=== PATIENT | female | born 1975 | race Caucasian/White ===

== ENCOUNTER 2020-06-08 09:54 | Outpatient (REF) | payer OTHER, SELFPAY ==
[2020-06-08 10:44] LABS: COVID-19 Test Negative (Negative)
== END 2020-06-08 09:55 | disposition home or self-care (01) ==
LOC: HO.EMPCOV 09:54
PROVIDERS: Visit Provider Internal Medicine
DX: Z20.828 Contact with and (suspected) exposure to other viral communicable diseases (principal)
CPT/HCPCS: 87635; C9803

== ENCOUNTER 2020-10-21 08:45 | Outpatient (REF) | payer OTHER, SELFPAY ==
[2020-10-21 09:09] LABS: COVID-19 Test Negative (Negative); IDNOW Serial# 55D5AD1C
== END 2020-10-21 08:46 | disposition home or self-care (01) ==
LOC: HO.EMPCOV 08:45
PROVIDERS: Visit Provider Internal Medicine
DX: Z20.822 Contact with and (suspected) exposure to COVID-19 (principal)
CPT/HCPCS: 36415; 87635; C9803

== ENCOUNTER → 2021-01-10 15:25 | Outpatient (BNVA) | payer OTHER, SELFPAY | PROVIDERS: Visit Provider Surgery | DX: K64.5 Perianal venous thrombosis (principal) | CPT/HCPCS: 99212 ==

== ENCOUNTER 2021-02-03 23:00 | Emergency (ER) | payer OTHER, SELFPAY ==
--- NOTE | ~2021-02-03 | XR_ITS ---
EXAMINATION: PORTABLE CHEST 1 VIEW CLINICAL INFORMATION: cough/fever - Covid+ . COMPARISON: 01/24/2015. TECHNIQUE: Portable frontal view of the chest was obtained. FINDINGS: Lungs are well expanded with subtle patchy bilateral airspace changes and now present suggesting underlying atypical or viral infectious etiology. No significant effusion, edema, or pneumothorax. Cardiac and mediastinal silhouettes within normal limits for size. No acute bony abnormality. XR/XR chest 1V IMPRESSION: Subtle patchy bilateral airspace changes which could reflect underlying viral or atypical infectious etiology.
--- NOTE | ~2021-02-03 | CT_ITS ---
EXAMINATION: CT ANGIOGRAM OF THE CHEST WITH AND WITHOUT CONTRAST (CT PULMONARY ANGIOGRAM FOR PE) CLINICAL INFORMATION: Reason for Exam tachycardia COVID positive r/o PE COMPARISON: 08/12/2014 TECHNIQUE: Prior to contrast administration, noncontrast localization images were obtained. Subsequently, multidetector volumetric imaging was performed from the thoracic inlet to below the diaphragms following the administration of 80 mL Omnipaque 350 intravenous contrast. No contrast reaction reported Sagittal, coronal, and MIP oblique sagittal reformatted images were obtained on the CT workstation, uploaded to PACS, and reviewed. This CT examination was performed using dose optimization techniques as appropriate, variously including the following: *Automated exposure control *Adjustment of mA and/or kV according to patient size (this includes techniques or standardized protocols for targeted exams where dose is matched to indication/reason for exam; i.e. extremities or head) *Use of iterative reconstruction technique Total exam dose-length product 234 mGy-cm FINDINGS: QUALITY OF STUDY/CONTRAST BOLUS: Satisfactory. PULMONARY ARTERIES: No central or segmental pulmonary emboli. THORACIC AORTA: No aneurysm or dissection. LUNG: There are patchy peripheral consolidative opacities predominating within the lower lobes bilaterally, and to a much lesser extent within the left upper and right upper lobe. PLEURA: No pleural effusion or pneumothorax. MEDIASTINUM: Normal heart size. No pericardial effusion. No hilar or mediastinal lymphadenopathy. No evidence of septal bowing or right heart strain. CHEST WALL/AXILLA: No axillary or internal mammary lymphadenopathy. OSSEOUS STRUCTURES: No acute or suspicious osseous abnormality. UPPER ABDOMEN: Unremarkable. No reflux of contrast into the hepatic veins to suggest elevated right heart pressures. CT/CT angio chest PE protocol IMPRESSION: * No pulmonary embolism. * No aortic aneurysm or dissection. * There are patchy peripherally predominant lower lobe airspace opacities compatible with an atypical pneumonitis. VTE: negative
[2021-02-03 23:20] VITALS: BP 147/63; PULSE 114; RESP 18; TEMP 37; O2SAT 96; BMI 25.2
--- NOTE | 2021-02-04 00:08 | ED.FEVER ---
HPI - Fever General Chief Complaint: Fever Stated Complaint: covid + Time Seen by Provider: 02/03/21 23:58 Source: patient Mode of arrival: ambulatory Limitations: no limitations History of Present Illness HPI Narrative: 45 yo female hx of RA but not on any medications, did not get vaccine, went to [place] recently on Saturday noted fevers, cough, not feeling well tested positive for COVID on Saturday today is day 8 of symptoms, she mostly c/o persistent fevers, no CP/SOB. Took tylenol but no sig relief and the patient was told by people not to take motrin elicited complaint: fever Pertinent past history: other (COVID positive) Onset (ago): day(s) (8) Measured temperature: 100.4 F Context: sick contacts and other(s) with similar symptoms Exacerbating factors: nothing Relieving factors: nothing Associated symptoms: cough and diarrhea Treatments prior to arrival fever: acetaminophen Related Data Home Medications Medication Instructions Recorded Confirmed No Known Home Meds 01/10/21 01/11/21 Allergies Allergy/AdvReac Type Severity Reaction Status Date / Time No Known Allergies Allergy Verified 02/03/21 23:20 [No Known Allergies*] Review of Systems Review of Systems: Constitutional : No Weight loss, pos Fever, pos Chills, pos Fatigue, No Malaise ENT/Mouth : No sore throat, No Rhinorrhea Eyes: No Eye Pain, No Swelling, No Redness Cardiovascular : No Chest Pain, No SOB, No Dyspnea on Exertion, No Orthopnea, No Edema, No Palpitations Respiratory : pos Cough, No Sputum, No Wheezing Gastrointestinal : No Nausea, No Vomiting, pos Diarrhea, No Constipation, No abdominal Pain, No Hematochezia, No Melena Genitourinary : No Dysuria, No Urinary Frequency, No Hematuria, Musculoskeletal : No joint pain, No Myalgias, No Joint Swelling Skin : No Skin Lesions, No rash Neuro : No Weakness, No Numbness, No Dizziness, No Headache Psych : No Anxiety/Panic, No Depression Heme/Lymph: No Bruising, No Bleeding,No Lymphadenopathy Endocrine : No Polyuria, No Polydipsia All other systems reviewed and are negative [facility] Past Medical History Medical History Rheumatoid arthritis Thrombosed external hemorrhoid Surgical History History of hemorrhoidectomy (04/27/14) History of laparoscopic cholecystectomy (06/14/14) Family History Family History Father History of liver cancer Maternal Aunt History of leukemia Social History Social History Alcohol intake: never Patient Tobacco Use Status: Never used Tobacco Advance Directives: No Patient : Yes Physical Exam Vital Signs: Vital Signs: Last Vital Signs Temp 98.6 F 02/03/21 23:20 Pulse 120 H 02/04/21 00:46 Resp 20 02/04/21 00:46 BP 127/71 02/04/21 00:46 Pulse Ox 98 02/04/21 00:46 Body Mass Index 25.2 Appearance: Alert. Oriented X3. No acute distress. Anxious Eyes: Pupils equal, round and reactive to light. ENT: Pharynx normal. Neck: Normal inspection. Neck supple. CVS: tachycardic heart rate and rhythm. Pulses normal. Respiratory: No respiratory distress. Breath sounds normal. Abdomen: Soft and nontender. Skin: Skin warm and dry. Normal skin color. Normal skin turgor. Extremities: No lower extremity edema. No calf ttp Neuro: Oriented X 3. No motor deficit. No sensory deficit. ambulation trial in room maintained sats > 97% Course Course Course Narrative: qtc prolonged, IV magnesium ordered persitently tachycardic - CTA for PE orderd MDM - Fever MDM Narrative Medical decision making narrative: 45 yo female hx of RA but not on any medications, did not get vaccine, went to [place] recently on Saturday noted fevers, cough, not feeling well tested positive for COVID on Saturday today is day 8 of symptoms, she mostly c/o persistent fevers, no CP/SOB. Took tylenol but no sig relief and the patient was told by people not to take motrin. At this time no CP/SOB to suggest PE, no hypoxia. CXR shows subtle infiltrates - will obtain risk labs, I do not suspect superimposed bacterial infection or PE Lab Data Result diagrams: 02/04/21 00:59 02/04/21 00:59 Labs: Lab Results 02/04/21 02/04/21 Range/Units 00:59 00:59 WBC 3.9 L (4.8-10.8) X10*3/uL RBC 5.05 (4.20-5.50) X10*6/uL Hgb 13.1 (12.0-16.0) g/dl Hct 39.8 (37-47) % MCV 78.8 L (80-98) fL MCH 25.9 L (27.0-33.0) pg MCHC 32.9 (31.0-35.0) g/dl RDW 13.1 (11.0-16.0) % Plt Count 103 L (160-400) X10*3/uL MPV 10.6 (9.4-12.3) fL Immature Gran % (Auto) 0.3 (0.0-0.4) % Neut % (Auto) 78.1 H (45-73) % Lymph % (Auto) 18.3 L (20-40) % [place] % (Auto) 3.3 (2-11) % Eos % (Auto) 0.0 (0-4) % Baso % (Auto) 0.0 (0-2) % Lymph # (Auto) 0.7 L (1.2-4.9) X10*3/uL [place] # (Auto) 0.1 (0.1-1.2) X10*3/uL Eos # (Auto) 0.0 (0.0-0.4) X10*3/uL Baso # (Auto) 0.0 (0.0-0.2) X10*3/uL Abs Immat Gran (auto) 0.01 (0.00-0.03) X10*3/uL Absolute Neuts (auto) 3.1 (2.0-8.3) X10*3/uL Absolute Nucleated RBC 0.000 (0.0-0.012) X10*3/uL Nucleated RBC % (auto) 0.0 (0.0-0.2) /100WBC D-Dimer 283 NG/ML ECG Data ECG #1: Attestation: I personally reviewed and interpreted this ECG as follows: ECG interpretation time: 00:51 Interpretation: Rate: 113 Rhythm: sinus tachycardia [place]: normal Normal P waves. Normal ROSANNA. Normal QRS complex. ST T wave : nonspecific, no ILEANA qTC: prolonged prior studies: no acute ischemia The study has been interpreted contemporaneously by me. . Discharge Plan Discharge Clinical Impression: COVID-19, Prolonged QT interval, Tachycardia Prescriptions: No Action No Known Home Meds RF: 0
--- NOTE | 2021-02-04 00:28 | ECG_ITS ---
Test Reason : COVID + Blood Pressure : / mmHG Vent. Rate : 113 BPM Atrial Rate : 113 BPM P-R Int : 096 ms QRS Dur : 078 ms QT Int : 470 ms P-R-T Axes : 000 022 042 degrees QTc Int : 644 ms Sinus tachycardia with short SD Nonspecific ST-T changes Prolonged QT Abnormal ECG When compared with ECG of 12-AUG-2014 13:53, SD interval has decreased Referred By: Hailee Ellison Electronically Signed By:Franklin Zee
[2021-02-04 00:46] VITALS: BP 127/71; PULSE 120; RESP 20; O2SAT 98
[2021-02-04 00:47] VITALS: TEMP 38
[2021-02-04 01:05] LABS: Hemoglobin 13.1 g/dl (12.0-16.0); Imm Gran Abs Auto 0.01 X10*3/uL (0.00-0.03); Monocytes Absolute Auto 0.1 X10*3/uL (0.1-1.2); PLT CLUMP 1; Red Cell Distribution Width 13.1 % (11.0-16.0); SCAN SMEAR FLAG 1
[2021-02-04 01:07] LABS: Hematocrit 39.8 % (37-47); Imm Gran Pct Auto 0.3 % (0.0-0.4); Lymphocytes Absolute Auto 0.7 X10*3/uL (1.2-4.9); Lymphocytes Percent Auto 18.3 % (20-40); Mean Corpuscular HGB Conc 32.9 g/dl (31.0-35.0); Mean Corpuscular Hemoglobin 25.9 pg (27.0-33.0); Mean Corpuscular Volume 78.8 fL (80-98); Mean Platelet Volume 10.6 fL (9.4-12.3); Monocytes Percent Auto 3.3 % (2-11); Neutrophils Absolute Auto 3.1 X10*3/uL (2.0-8.3); Neutrophils Percent Auto 78.1 % (45-73); Red Blood Count 5.05 X10*6/uL (4.20-5.50); White Blood Count 3.9 X10*3/uL (4.8-10.8)
[2021-02-04 01:08] LABS: MANUAL DIFF FLAG NO; Platelet Count 103 X10*3/uL (160-400)
[2021-02-04 01:13] LABS: D Dimer 283 NG/ML
[2021-02-04 01:28] LABS: Lactic Acid 0.7 mmol/L (0.5-2.0)
[2021-02-04 01:32] LABS: C Reactive Protein 2.81 mg/dL (< or = 0.50)
[2021-02-04 01:39] LABS: Alanine Aminotransferase 101 U/L (0-31); Albumin Level 4.1 g/dL (3.5-5.0); Alkaline Phosphatase 114 U/L (39-117); Anion Gap 15 (12-20); Aspartate Amino Transferase 81 U/L (5-31); Bilirubin Direct < 0.2 mg/dL (0.0-0.5); Bilirubin Total 0.2 mg/dL (0.0-1.0); Blood Urea Nitrogen 3 mg/dL (9-16); Calcium 8.8 mg/dL (8.4-10.2); Carbon Dioxide 24 mmol/L (22-29); Chloride 105 mmol/L (96-108); Creatinine Clr Calc Pharmacy 100.8; Estimated Glomerular Filt Rate > 60; Glucose Random 129 mg/dL (60-115); Lactate Dehydrogenase 304 U/L (122-220); Magnesium 1.7 mg/dL (1.6-2.6); Potassium 3.2 mmol/L (3.3-5.1); Sodium 141 mmol/L (135-145); Total Protein 7.1 g/dL (6.5-8.0)
[2021-02-04 01:51] LABS: Ferritin 106 ng/mL (10-250)
[2021-02-04] MEDS: 0.9 % Sodium Chloride 1,000 ML 999 ML IVCONT (01:55)
[2021-02-04] MEDS: Potassium Chloride ER 20 MEQ TAB.ER.PRT 40 MEQ PO (02:02)
[2021-02-04] MEDS: Ibuprofen 600 MG TABLET PO (02:02)
[2021-02-04] MEDS: Magnesium Sulfate/H2O 2 GM/50 ML PIGGYBACK IV (02:02)
[2021-02-04 02:29] LABS: Troponin-I High Sensitivity 7.4 ng/L (<3.5-17.0)
[2021-02-04] MEDS: iohexoL 350 MG/ML 100 ML INFUS..BTL 65 ML IV (02:53)
--- NOTE | 2021-02-04 03:58 | ECG_ITS ---
Test Reason : PROLONGED QT Blood Pressure : / mmHG Vent. Rate : 132 BPM Atrial Rate : 132 BPM P-R Int : 126 ms QRS Dur : 072 ms QT Int : 302 ms P-R-T Axes : 066 027 -05 degrees QTc Int : 447 ms Sinus tachycardia Nonspecific ST abnormality Abnormal ECG When compared with ECG of 04-FEB-2021 00:45, [place] interval has increased Referred By: Hailee Ellison Electronically Signed By:Franklin Zee
[2021-02-04 04:05] VITALS: BP 129/63; PULSE 129; RESP 18; O2SAT 96
== END 2021-02-04 04:51 | disposition home or self-care (01) ==
PROVIDERS: Emergency Medicine; Emergency Provider Emergency Medicine; PCP Internal Medicine
DX: U07.1 COVID-19 (principal); R94.31 Abnormal electrocardiogram [ECG] [EKG]; R00.0 Tachycardia, unspecified; R91.8 Other nonspecific abnormal finding of lung field
CPT/HCPCS: 36415; 71045; 71275; 80048; 80076; 82550; 82728; 83605; 83615; 83735; 84484; 85025; 85379; 86140; 87040; 93005; 96361; 96365; 99284; J3475; Q9967

== ENCOUNTER 2021-02-08 13:31 | Outpatient (REF) | payer OTHER, SELFPAY ==
--- NOTE | ~2021-02-08 | XR_ITS ---
EXAMINATION: XR CHEST CLINICAL INFORMATION: U07.1 - COVID-19 COMPARISON: Chest radiographs 02/03/2021, 01/24/2015; CTA chest 02/04/2021 TECHNIQUE: 2 views of the chest were obtained. FINDINGS: There are scattered subtle groundglass opacities in the lower zones slightly increased since prior exam 02/03/2021. No confluent lobar segmental airspace consolidation or effusion. The heart is normal in size. The vascularity is normal. No pneumothorax or pneumomediastinum. XR/XR chest 2V IMPRESSION: Groundglass opacities lower zones slightly increased since prior exam 02/03/2021.
== END 2021-02-08 13:32 | disposition home or self-care (01) ==
LOC: HO.XRAY 13:31
PROVIDERS: Visit Provider Internal Medicine
DX: U07.1 COVID-19 (principal)
CPT/HCPCS: 71046

== ENCOUNTER 2021-02-10 16:32 | Outpatient (REF) | payer OTHER, SELFPAY ==
--- NOTE | ~2021-02-10 | CT_ITS ---
EXAMINATION: CT CHEST WITHOUT CONTRAST CLINICAL INFORMATION: Abnormal findings on diagnostic imaging. COMPARISON: Radiograph 02/08/2021. CT 02/04/2021. TECHNIQUE: Multidetector volumetric CT imaging of the chest was done. Axial MIP volume rendering provided. Sagittal and coronal reformatted images were obtained. This CT examination was performed using dose optimization techniques as appropriate, variously including the following: *Automated exposure control *Adjustment of mA and/or kV according to patient size (this includes techniques or standardized protocols for targeted exams where dose is matched to indication/reason for exam; i.e. extremities or head) *Use of iterative reconstruction technique DLP: 193 mGy-cm FINDINGS: SAMPLE WEAVER: Right upper quadrant surgical clips. LUNGS: The central airways are patent. Multifocal consolidative and groundglass opacities are present. There is a predominantly posterior and peripheral distribution. When compared to the prior CT, the lower lobe opacities are fairly similar. The left upper lobe opacities are mildly increased. No pneumothorax. MEDIASTINUM: Normal heart size. No pericardial effusion. No mediastinal lymphadenopathy. PLEURA: There is no pleural effusion. No pleural mass or thickening. AXILLA: No lymphadenopathy. UPPER ABDOMEN: Cholecystectomy. OSSEOUS STRUCTURES: No acute or suspicious osseous abnormality. CT/CT chest wo con IMPRESSION: Multifocal bilateral airspace opacities which are similar to the prior CT in the lower lobes and mildly increased in the left upper lobe. Commonly reported imaging features of (COVID-19 or viral) pneumonia are present. Other processes such as influenza pneumonia and organizing pneumonia, as can be seen with drug toxicity and connective tissue disease, can cause a similar imaging pattern.
== END 2021-02-10 16:33 | disposition home or self-care (01) ==
LOC: HO.CT 16:32
PROVIDERS: PCP Internal Medicine; Visit Provider Internal Medicine
DX: R93.89 Abnormal findings on diagnostic imaging of other specified body structures (principal); R06.9 Unspecified abnormalities of breathing; Z90.49 Acquired absence of other specified parts of digestive tract
CPT/HCPCS: 71250

== ENCOUNTER → 2021-02-20 13:20 | Outpatient (REF) | payer OTHER, SELFPAY ==
--- NOTE | 2021-02-20 14:58 | HM_ITS ---
Patient monitored for total period of 2 days and 17 hours. Baseline rhythm is normal sinus rhythm with average heart rate of 107 beats per minute with minimum heart rate of 77 beats per minute. No long pauses or Benson arrhythmias noted. Frequent sinus tachycardia noted. Very rare ectopics, isolated PACs and PVCs noted. No prolonged tachyarrhythmias noted. Patient did not have any symptoms. MTDD
== END ==
LOC: HO.CARD 13:20
PROVIDERS: PCP Internal Medicine; Referring Provider Internal Medicine; Visit Provider Internal Medicine
DX: R00.2 Palpitations (principal); R00.0 Tachycardia, unspecified
CPT/HCPCS: 93225; 93242

== ENCOUNTER → 2021-02-20 | Outpatient (REF) | payer OTHER, SELFPAY | LOC: HO.CARD | PROVIDERS: Visit Provider Internal Medicine | DX: R00.0 Tachycardia, unspecified (principal) | CPT/HCPCS: 93005 ==

== ENCOUNTER 2021-02-22 05:19 | Emergency (ER) | payer OTHER, SELFPAY ==
[2021-02-22 05:25] VITALS: BP 157/74; PULSE 135; RESP 18; O2SAT 97; BMI 23.8
--- NOTE | 2021-02-22 05:43 | ED.GENADULT ---
HPI - General Adult General Chief complaint: General Medical Stated complaint: med reaction Time Seen by Provider: 02/22/21 05:32 Source: patient Mode of arrival: ambulatory Limitations: no limitations History of Present Illness HPI narrative: Patient comes emergency room complaining of palpitations. Patient states that she is being treated for anxiety, also has a Holter monitor for tachycardia. Patient states that she has been wearing a Holter monitor and is being followed by Dr. Wallace. Patient states all her symptoms started after she had COVID. Also, patient states that couple of days ago she was started on a new medication, escitalopram. Patient is concerned that the palpitations that is feeling today may be due to a side effect from the citalopram versus anxiety versus sinus tachycardia. Patient denies shortness of breath, no chest pain. Related Data Home Medications Medication Instructions Recorded Confirmed omeprazole 20 mg capsule,delayed 20 mg PO DAILY 02/20/21 02/20/21 release Previous Rx's Medication Instructions Recorded nystatin 100,000 unit/mL oral 1 ml PO BID 7 Days #14 ml 02/20/21 suspension escitalopram oxalate 10 mg tablet 10 mg PO BEDTIME 30 Days #30 tab 02/21/21 Allergies Allergy/AdvReac Type Severity Reaction Status Date / Time No Known Allergies Allergy Verified 02/20/21 13:55 [No Known Allergies*] Review of Systems Review of Systems: Constitutional : No Weight loss, No Fever, No Chills, No Night Sweats, No Fatigue, No Malaise ENT/Mouth : No Hearing loss, No Ear Pain, No Nasal Congestion, No Sinus Pain, No Hoarseness, No sore throat, No Rhinorrhea, No Swallowing Difficulty Eyes: No Eye Pain, No Swelling, No Redness, No Foreign Body, No Discharge, No Vision Changes Cardiovascular : No Chest Pain, No SOB, No Dyspnea on Exertion, No Orthopnea, No Edema, complaining of palpitations and rapid heart rate Respiratory : No Cough, No Sputum, No Wheezing, No Smoke Exposure, No Dyspnea Gastrointestinal : No Nausea, No Vomiting, No Diarrhea, No Constipation, No abdominal Pain, No Hematochezia, No Melena Genitourinary : no irregular bleeding, No Dysuria, No Urinary Frequency, No Hematuria, No Urinary Incontinence, No Urgency, No Flank Pain, No Urinary Flow Changes, No Hesitancy Musculoskeletal : No joint pain, No Myalgias, No Joint Swelling Skin : No Skin Lesions, No rash Neuro : No Weakness, No Numbness, No Paresthesias, No Loss of Consciousness, No Dizziness, No Headache Psych : Complaining of anxiety, No Depression, No SI/HI/AH/VH, No Social Issues, Heme/Lymph: No Bruising, No Bleeding,No Lymphadenopathy Endocrine : No Polyuria, No Polydipsia, No Temperature Intolerance [facility] Past Medical History Medical History Abnormal chest x-ray COVID-19 (~12/2020) Prolonged [place] interval Rash Rheumatoid arthritis Thrombosed external hemorrhoid Surgical History (Updated 02/20/21 @ 14:11 by Yessica Michel PA-C) History of hemorrhoidectomy (2013) History of laparoscopic cholecystectomy (2013) Family History Family History Father History of liver cancer Maternal Aunt History of leukemia Social History Social History Housing: House Alcohol intake: never Patient Tobacco Use Status: Never used Tobacco Advance Directives: No Advance Directives Information Provided: No Patient : No service: No Current occupational status: employed Current occupational exposures/hazards: No Physical Exam Vital Signs: Vital Signs: Last Vital Signs Pulse 135 H 02/22/21 05:25 Resp 18 02/22/21 05:25 BP 157/74 H 02/22/21 05:25 Pulse Ox 97 02/22/21 05:25 Body Mass Index 23.8 Appearance: Alert. Oriented X3. No acute distress. A bit anxious Eyes: Pupils equal, round and reactive to light. ENT: Pharynx normal. Neck: Normal inspection. Neck supple. No lymph nodes noted. No crepitus CVS: Tachycardic, Pulses normal. Normal S1 and S2 Respiratory: No respiratory distress. Breath sounds normal. No Wheezing. No rales Abdomen: Soft and nontender. No rigidity. No distention. good BS x4 Skin: Skin warm and dry. Normal skin color. Normal skin turgor. Extremities: No lower extremity edema. No lower extremity edema. No Lacerations. No Rash Neuro: Oriented X 3. No motor deficit. No sensory deficit. Moving all extermities. No slurred speech. Const: Other: Appearance: Alert. Oriented X3. No acute distress. Slightly anxious Eyes: Pupils equal, round and reactive to light. ENT: Pharynx normal. Neck: Normal inspection. Neck supple. No lymph nodes noted. No crepitus CVS: Tachycardic. Pulses normal. Normal S1 and S2 Respiratory: No respiratory distress. Breath sounds normal. No Wheezing. No rales Abdomen: Soft and nontender. No rigidity. No distention. good BS x4 Skin: Skin warm and dry. Normal skin color. Normal skin turgor. Extremities: No lower extremity edema. No Lacerations. No Rash Neuro: Oriented X 3. No motor deficit. No sensory deficit. Moving all extermities. No slurred speech. Course Course Course Narrative: Sign-out given to Dr. James Medical Decision Making Lab Data Result diagrams: 02/22/21 06:17 02/22/21 06:17 Labs: Lab Results 02/22/21 Range/Units 06:17 WBC 9.1 (4.8-10.8) X10*3/uL RBC 4.82 (4.20-5.50) X10*6/uL Hgb 12.5 (12.0-16.0) g/dl Hct 38.7 (37-47) % MCV 80.3 (80-98) fL MCH 25.9 L (27.0-33.0) pg MCHC 32.3 (31.0-35.0) g/dl RDW 14.0 (11.0-16.0) % Plt Count 530 H D (160-400) X10*3/uL MPV 9.4 (9.4-12.3) fL Immature Gran % (Auto) 0.3 (0.0-0.4) % Neut % (Auto) 76.7 H (45-73) % Lymph % (Auto) 13.0 L (20-40) % [place] % (Auto) 9.8 (2-11) % Eos % (Auto) 0.1 (0-4) % Baso % (Auto) 0.1 (0-2) % Lymph # (Auto) 1.2 (1.2-4.9) X10*3/uL [place] # (Auto) 0.9 (0.1-1.2) X10*3/uL Eos # (Auto) 0.0 (0.0-0.4) X10*3/uL Baso # (Auto) 0.0 (0.0-0.2) X10*3/uL Abs Immat Gran (auto) 0.03 (0.00-0.03) X10*3/uL Absolute Neuts (auto) 7.0 (2.0-8.3) X10*3/uL Absolute Nucleated RBC 0.000 (0.0-0.012) X10*3/uL Nucleated RBC % (auto) 0.0 (0.0-0.2) /100WBC ECG Data Attestation: I personally reviewed and interpreted this ECG as follows: (Sinus tachycardia, heart rate 130, no ST segment depression or elevation, no T-wave inversion, QTC 438) Discharge Plan Discharge Clinical Impression: Tachycardia Prescriptions: No Action escitalopram oxalate 10 mg tablet 10 mg PO BEDTIME 30 Days Qty: 30 RF: 0 omeprazole 20 mg capsule,delayed release(DR/EC) 20 mg PO DAILY RF: 0 nystatin 100,000 unit/mL suspension 1 ml PO BID 7 Days Qty: 14 RF: 0
--- NOTE | 2021-02-22 05:46 | ECG_ITS ---
Test Reason : MED RECTION Blood Pressure : / mmHG Vent. Rate : 130 BPM Atrial Rate : 130 BPM P-R Int : 140 ms QRS Dur : 078 ms QT Int : 298 ms P-R-T Axes : 075 039 006 degrees QTc Int : 438 ms Sinus tachycardia Nonspecific ST and T wave abnormality Abnormal ECG When compared with ECG of 04-FEB-2021 04:04, No significant change was found Referred By: Hailee Ellison Electronically Signed By:JOSE MARTIN CRAWFORD
[2021-02-22] MEDS: LORazepam 1 MG TABLET PO (06:11)
[2021-02-22] MEDS: 0.9 % Sodium Chloride 1,000 ML 999 ML IVCONT (06:12)
[2021-02-22 06:21] LABS: MANUAL DIFF FLAG NO
[2021-02-22 06:22] LABS: Basophils Percent Auto 0.1 % (0-2); Eosinophils Percent Auto 0.1 % (0-4); Hematocrit 38.7 % (37-47); Hemoglobin 12.5 g/dl (12.0-16.0); Imm Gran Abs Auto 0.03 X10*3/uL (0.00-0.03); Imm Gran Pct Auto 0.3 % (0.0-0.4); Lymphocytes Absolute Auto 1.2 X10*3/uL (1.2-4.9); Mean Corpuscular HGB Conc 32.3 g/dl (31.0-35.0); Mean Corpuscular Hemoglobin 25.9 pg (27.0-33.0); Mean Corpuscular Volume 80.3 fL (80-98); Mean Platelet Volume 9.4 fL (9.4-12.3); Monocytes Absolute Auto 0.9 X10*3/uL (0.1-1.2); Monocytes Percent Auto 9.8 % (2-11); Neutrophils Percent Auto 76.7 % (45-73); Platelet Count 530 X10*3/uL (160-400); Red Blood Count 4.82 X10*6/uL (4.20-5.50); White Blood Count 9.1 X10*3/uL (4.8-10.8)
[2021-02-22 07:03] LABS: Anion Gap 12 (12-20); Blood Urea Nitrogen 4 mg/dL (9-16); Calcium 9.9 mg/dL (8.4-10.2); Carbon Dioxide 28 mmol/L (22-29); Chloride 105 mmol/L (96-108); Creatinine Clr Calc Pharmacy 88.1; Estimated Glomerular Filt Rate > 60; Glucose Random 120 mg/dL (60-115); Potassium 3.3 mmol/L (3.3-5.1); Sodium 142 mmol/L (135-145)
== END 2021-02-22 08:49 | disposition home or self-care (01) ==
PROVIDERS: Emergency Provider Emergency Medicine; PCP Internal Medicine
DX: R00.0 Tachycardia, unspecified (principal); Z79.899 Other long term (current) drug therapy
CPT/HCPCS: 36415; 80048; 84443; 85025; 93005; 96360; 99283; 99284

== ENCOUNTER 2021-02-23 14:15 | Outpatient (REF) | payer OTHER, SELFPAY ==
--- NOTE | ~2021-02-23 | CT_ITS ---
EXAMINATION: CT ANGIOGRAM OF THE CHEST WITH AND WITHOUT CONTRAST (CT PULMONARY ANGIOGRAM FOR PE) CLINICAL INFORMATION: Acute respiratory distress. COMPARISON: CT of the chest February 10, 2021, February 04, 2021. Chest x-ray February 08, 2021 TECHNIQUE: Prior to contrast administration, noncontrast localization images were obtained. Subsequently, multidetector volumetric imaging was performed from the thoracic inlet to below the diaphragms following the administration of 65 mL Omnipaque 350 intravenous contrast. No contrast reaction reported Sagittal, coronal, and MIP oblique sagittal reformatted images were obtained on the CT workstation, uploaded to PACS, and reviewed. This CT examination was performed using dose optimization techniques as appropriate, variously including the following: *Automated exposure control *Adjustment of mA and/or kV according to patient size (this includes techniques or standardized protocols for targeted exams where dose is matched to indication/reason for exam; i.e. extremities or head) *Use of iterative reconstruction technique Total exam dose-length product 89 mGy-cm FINDINGS: QUALITY OF STUDY/CONTRAST BOLUS: Satisfactory. PULMONARY ARTERIES: No central or segmental pulmonary emboli. THORACIC AORTA: No aneurysm or dissection. LUNG: There is been significant improvement since the prior CT chest of February 04, 2021 and February 10, 2021 of the patchy bilateral airspace opacities. The dense groundglass opacities in the lungs have substantially improved are entirely resolved. There is only several subtle residual hazy airspace opacities in subpleural lung bilaterally yet remaining. There is developing subpleural fibrotic line consistent with sequela of prior Covid infection involving both lung bases. No new airspace disease. No suspicious lung nodule. PLEURA: No pleural effusion or pneumothorax. MEDIASTINUM: Normal heart size. No pericardial effusion. No hilar or mediastinal lymphadenopathy. No evidence of septal bowing or right heart strain. CHEST WALL/AXILLA: No axillary or internal mammary lymphadenopathy. OSSEOUS STRUCTURES: No acute or suspicious osseous abnormality. UPPER ABDOMEN: Unremarkable. No reflux of contrast into the hepatic veins to suggest elevated right heart pressures. CT/CT angio chest PE protocol IMPRESSION: 1. No evidence of pulmonary embolism. 2. Resolving multifocal bilateral airspace disease significantly improved since prior CT chest February 10, 2021. VTE: negative
[2021-02-23 14:40] LABS: MANUAL DIFF FLAG NO
[2021-02-23 14:47] LABS: Basophils Percent Auto 0.1 % (0-2); Hematocrit 38.4 % (37-47); Hemoglobin 12.5 g/dl (12.0-16.0); Imm Gran Abs Auto 0.01 X10*3/uL (0.00-0.03); Imm Gran Pct Auto 0.1 % (0.0-0.4); Lymphocytes Absolute Auto 1.3 X10*3/uL (1.2-4.9); Lymphocytes Percent Auto 17.8 % (20-40); Mean Corpuscular HGB Conc 32.6 g/dl (31.0-35.0); Mean Corpuscular Hemoglobin 25.9 pg (27.0-33.0); Mean Corpuscular Volume 79.7 fL (80-98); Monocytes Absolute Auto 0.6 X10*3/uL (0.1-1.2); Monocytes Percent Auto 7.7 % (2-11); Neutrophils Absolute Auto 5.4 X10*3/uL (2.0-8.3); Neutrophils Percent Auto 74.3 % (45-73); Platelet Count 510 X10*3/uL (160-400); Red Blood Count 4.82 X10*6/uL (4.20-5.50); Red Cell Distribution Width 14.2 % (11.0-16.0); White Blood Count 7.3 X10*3/uL (4.8-10.8)
[2021-02-23 15:16] LABS: Alanine Aminotransferase 26 U/L (0-31); Albumin Level 4.4 g/dL (3.5-5.0); Alkaline Phosphatase 94 U/L (39-117); Anion Gap 15 (12-20); Aspartate Amino Transferase 17 U/L (5-31); B Type Natriuretic Peptide < 10 pg/mL (<100); Bilirubin Direct 0.3 mg/dL (0.0-0.5); Bilirubin Total 0.7 mg/dL (0.0-1.0); Blood Urea Nitrogen 4 mg/dL (9-16); Calcium 10.1 mg/dL (8.4-10.2); Carbon Dioxide 24 mmol/L (22-29); Chloride 105 mmol/L (96-108); Estimated Glomerular Filt Rate > 60; Glucose Random 118 mg/dL (60-115); Potassium 3.7 mmol/L (3.3-5.1); Sodium 140 mmol/L (135-145); Total Protein 7.3 g/dL (6.5-8.0); Troponin-I High Sensitivity < 3.5 ng/L (<3.5-17.0)
[2021-02-23] MEDS: iohexoL 350 MG/ML 100 ML INFUS..BTL IV (15:42)
[2021-02-23 16:01] LABS: Erythrocyte Sedimentation Rate 7 MM/HR (0-20)
[2021-02-23 18:38] LABS: D Dimer 239 NG/ML
[2021-02-24 05:10] LABS: SARS COV2 IgG Positive (Negative)
[2021-02-26 14:01] LABS: TS Negative Control Passed; TS Panel A 0; TS Panel B 0; TS Positive Control Passed; TSpotTB Negative (SeeBelow)
[2021-02-27 23:33] LABS: Anti Nuclear Antibody Screen NEGATIVE (NEGATIVE)
== END 2021-02-23 14:16 | disposition home or self-care (01) ==
LOC: HO.CT 14:15
PROVIDERS: PCP Internal Medicine; Visit Provider Hospitalist
DX: R06.03 Acute respiratory distress (principal); R00.0 Tachycardia, unspecified; J18.9 Pneumonia, unspecified organism; Z01.84 Encounter for antibody response examination
CPT/HCPCS: 36415; 71275; 80048; 80076; 83880; 84484; 85025; 85379; 85652; 86038; 86039; 86481; 86769; Q9967

== ENCOUNTER 2021-02-24 09:50 | Outpatient (REF) | payer OTHER, SELFPAY ==
--- NOTE | ~2021-02-24 | FL_ITS ---
EXAMINATION: FL BARIUM SWALLOW CLINICAL INFORMATION: R13.14 - Dysphagia, pharyngoesophageal phase. Patient notes recent improve symptoms on steroid. Recent COVID+. COMPARISON: CTA chest 02/23/2021, CTA chest 02/10/2021, chest radiograph 02/08/2021. TECHNIQUE: Barium swallow examination is performed using fluoroscopic evaluation in addition to multiple fluoroscopic spot views, including cine images during swallowing. Barium pill also used. The patient is imaged both upright and prone and using both thick and thin sulfate along with effervescent granules. Fluoroscopy time: 1.0 minutes DAP: 2.01 Gycm2 Images: 28 FINDINGS: Swallowing function is normal and there is no aspiration. The cervical esophagus has no web or diverticulum or stricture. The cervical thoracic junction appears normal. No cervical achalasia. The thoracic esophagus shows normal motility with no obstruction, stricture, or ulceration. Barium pill readily passed from mouth to stomach without delay. There is no hiatal hernia or reflux seen despite use of provocative maneuvers (prone Valsalva and water siphon test, respectively). A cursory view of the upper abdomen shows no gastric outlet obstruction. FL/FL barium swallow IMPRESSION: Normal study.
== END 2021-02-24 09:51 | disposition home or self-care (01) ==
LOC: HO.XRAY 09:50
PROVIDERS: PCP Internal Medicine; Visit Provider Internal Medicine Gastroenterology
DX: R13.14 Dysphagia, pharyngoesophageal phase (principal)
CPT/HCPCS: 74220

== ENCOUNTER → 2021-03-07 15:14 | Outpatient (BNVA) | payer OTHER, SELFPAY | PROVIDERS: PCP Internal Medicine; Visit Provider Hospitalist ==

== ENCOUNTER → 2021-03-13 08:20 | Outpatient (REF) | payer OTHER, SELFPAY ==
--- NOTE | 2021-03-13 08:23 | CA_ITS ---
Transthoracic Echocardiogram Patient (Last, First, Middle): Lauren Griffith I Gender: Female Date of : 1975 Age: 45 Procedure Date: 03/13/2021 Procedure Type: Transthoracic Echocardiogram Location: OP Height: 160.02 cm Weight: 60.33 kg BSA: 1.63 m2 Heart Rate: bpm BP: 114 / 70 mmHg Nylon Hot Wire Cutter: VALENTINO Referring MD: Maximo Wallace MD Symptoms: R00.0 - Tachycardia, unspecified Study Quality: Fair ECG Rhythm: Sinus tachycardia Conclusions: - The left ventricular systolic function is normal. The visually estimated ejection fraction is between 55-60%. - No obvious valvular pathology seen on this study. Findings Left Ventricle Normal left ventricular cavity size. There is normal left ventricular wall thickness. The left ventricular systolic function is normal. The visually estimated ejection fraction is between 55-60%. There is no evidence of regional wall motion abnormalities. Diastolic function is normal for age. Right Ventricle Normal right ventricular cavity size and systolic function. Atria Both atria are normal in size. Aortic Valve The aortic valve was not well visualized. There is no aortic valve stenosis. The mean gradient is 6 mmHg. There is no aortic valve regurgitation. Mitral Valve The mitral valve appears normal. There is trace mitral valve regurgitation. There is no mitral valve stenosis. Pulmonic Valve The pulmonic valve was not well visualized. Tricuspid Valve Normal tricuspid valve structure. There is mild tricuspid valve regurgitation. The pulmonary artery systolic pressure is normal. Great Vessels The aortic annulus, sinuses of valsalva, asc aorta, and aortic arch are normal in size. Venous The inferior vena cava is normal in size and collapses greater than 50% with inspiration. Pericardium/Pleural There is no evidence of pericardial effusion. Recommendations, Care & Conclusions No obvious valvular pathology seen on this study. Measurements 2D Linear Measurements IVSd: 0.83 0.6-0.9/0.6-1.0 cm LVIDd: 4.40 3.9-5.3/4.2-5.9 cm LVIDd Index: 2.70 2.4-3.2/2.2-3.1 cm/m2 LVIDs: 3.03 2.0-3.6 cm LVPWd: 0.82 0.7-1.1 cm Ao Root: 3.20 2.1-3.5 cm LA Diam: 2.30 2.7-3.8/3.0-4.0 cm LAIDs Index: 1.41 1.5-2.3 cm/m2 LV Mass: 142.28 67-162/88-224 g LV Mass Index: 87.29 43-95/49-115 g/m2 LVOT Diam: 2.20 3.0+(-)1.3 cm Mitral Valve E'Lateral: 18.70 E'Medial: 9.79 Aortic Valve AoV Pk Isauro: 1.56 AoV Mn Isauro: 1.12 AoV VTI: 0.25 AoV Pk Grad: 10.00 Aov Mn Grad: 6.00 RUBEN Cont.VTI: 2.66 LVOT LVOT Pk Isauro: 1.13 LVOT Mn Isauro: 0.65 LVOT VTI: 0.17 LVOT Pk Grad: 5.00 LVOT Mn Grad: 2.00 LVOT Diam: 2.20 LVOT Area: 3.80 Diastolic Function E'Medial: 9.79 E' Laterial: 18.70 Right Ventricle TAPSE (mm): 1.73 TVS' Isauro: 16.20 Tricuspid Valve TR Pk Isauro: 2.61 TR Pk Grad: 27.00 RA Press: 3.00 RVSP: 30.00 Great Vessels Aorta Ao Root-2D: 3.20 2.0-3.7 cm Ao Asc: 2.70 2.1-3.4 cm Ao Arch: 2.40 Updated in Other Vendor System with Status of Final Maximo Wallace MD electronically signed on 03/14/2021 12:40:56 PM with status of Final
== END ==
LOC: HO.CARD 08:20
PROVIDERS: PCP Internal Medicine; Visit Provider Internal Medicine
DX: R00.0 Tachycardia, unspecified (principal); U07.1 COVID-19
CPT/HCPCS: 93306

== ENCOUNTER 2021-03-14 15:50 | Outpatient (REF) | payer OTHER, SELFPAY ==
--- NOTE | 2021-03-14 17:23 | PFT_ITS ---
FLOWS: FEV1 102% of predicted at 2.82 L. FVC 98% of predicted at 3.35 L. FEV1 to FVC ratio of 0.84. No bronchodilator response. LUNG VOLUMES: Total lung capacity 104% of predicted at 5.13 L. Residual volume 102% of predicted at 1.72 L. Slow vital capacity 105% of predicted at 3.41 L. Expiratory reserve volume 88% of predicted at 0.92 L. Diffusion capacity is normal. IMPRESSION: No obstructive or restrictive ventilatory defect. No bronchodilator response. Essentially, normal pulmonary function test. Joshua Gibbs MD AP/MODL / [id number]
== END 2021-03-14 15:51 | disposition home or self-care (01) ==
LOC: HO.RESP 15:50
PROVIDERS: PCP Internal Medicine; Visit Provider Hospitalist
DX: B94.8 Sequelae of other specified infectious and parasitic diseases (principal)
CPT/HCPCS: 94060; 94727; 94729

== ENCOUNTER → 2021-04-06 14:36 | Outpatient (BNVA) | payer OTHER, SELFPAY | PROVIDERS: PCP Internal Medicine; Visit Provider Hospitalist ==

== ENCOUNTER 2021-05-19 09:32 | Outpatient (REF) | payer OTHER, SELFPAY ==
[2021-05-19 10:22] LABS: MANUAL DIFF FLAG NO
[2021-05-19 11:08] LABS: Basophils Percent Auto 0.1 % (0-2); Eosinophils Percent Auto 0.2 % (0-4); Hematocrit 39.4 % (37.0-47.0); Hemoglobin 12.4 g/dl (12.0-16.0); Imm Gran Abs Auto 0.03 X10*3/uL (0.00-0.03); Imm Gran Pct Auto 0.4 % (0.0-0.4); Lymphocytes Absolute Auto 1.1 X10*3/uL (1.2-4.9); Lymphocytes Percent Auto 13.5 % (20-40); Mean Corpuscular HGB Conc 31.5 g/dl (31.0-35.0); Mean Corpuscular Hemoglobin 25.7 pg (27.0-33.0); Mean Corpuscular Volume 81.7 fL (80.0-98.0); Mean Platelet Volume 10.3 fL (9.4-12.3); Monocytes Absolute Auto 0.4 X10*3/uL (0.1-1.2); Monocytes Percent Auto 4.8 % (2-11); Neutrophils Absolute Auto 6.6 x10*3/uL (2.0-8.3); Platelet Count 319 X10*3/uL (160-400); Red Blood Count 4.82 X10*6/uL (4.20-5.50); Red Cell Distribution Width 13.2 % (11.0-16.0); White Blood Count 8.1 X10*3/uL (4.8-10.8)
[2021-05-19 11:38] LABS: Iron 42 mcg/dL (30-160); Percent Iron Saturation 11 % (15-50); Total Iron Binding Capacity 389 mcg/dL (228-428); Unsaturated Iron Binding 347 ug/dL
[2021-05-19 11:45] LABS: Anion Gap 14 (12-20); Blood Urea Nitrogen 9 mg/dL (9-16); Calcium 9.9 mg/dL (8.4-10.2); Carbon Dioxide 23 mmol/L (22-29); Chloride 107 mmol/L (96-108); Estimated Glomerular Filt Rate > 60; Glucose Random 121 mg/dL (60-115); Sodium 140 mmol/L (135-145)
[2021-05-19 11:56] LABS: Ferritin 9 ng/mL (10-250); TSH reflex Free T4 1.23 uIU/mL (0.32-4.0)
[2021-05-19 12:19] LABS: Erythrocyte Sedimentation Rate 4 MM/HR (0-20)
[2021-05-20 07:50] LABS: SARS COV2 IgG Positive (Negative)
[2021-05-22 21:46] LABS: Cyclic Citrullinated Peptide >250 UNITS
[2021-05-23 14:46] LABS: Anti Nuclear Antibody Pattern Nuclear, Homogeneous; Anti Nuclear Antibody Screen POSITIVE (NEGATIVE)
== END 2021-05-19 09:33 | disposition home or self-care (01) ==
LOC: HO.LAB 09:32
PROVIDERS: PCP Internal Medicine; Visit Provider Hospitalist
DX: M06.9 Rheumatoid arthritis, unspecified (principal); R00.0 Tachycardia, unspecified; B94.8 Sequelae of other specified infectious and parasitic diseases; G47.00 Insomnia, unspecified; J20.9 Acute bronchitis, unspecified
CPT/HCPCS: 36415; 80048; 82728; 83540; 84443; 85025; 85652; 86038; 86039; 86200; 86431; 86769

== ENCOUNTER 2021-06-29 09:32 | Outpatient (REF) | payer OTHER, SELFPAY ==
[2021-06-29 09:57] LABS: MANUAL DIFF FLAG NO
[2021-06-29 10:48] LABS: Basophils Percent Auto 0.1 % (0-2); Eosinophils Percent Auto 0.3 % (0-4); Hematocrit 43.1 % (37.0-47.0); Hemoglobin 13.5 g/dl (12.0-16.0); Imm Gran Abs Auto 0.04 X10*3/uL (0.00-0.03); Imm Gran Pct Auto 0.4 % (0.0-0.4); Lymphocytes Absolute Auto 1.2 X10*3/uL (1.2-4.9); Lymphocytes Percent Auto 11.3 % (20-40); Mean Corpuscular HGB Conc 31.3 g/dl (31.0-35.0); Mean Platelet Volume 10.1 fL (9.4-12.3); Monocytes Absolute Auto 0.4 X10*3/uL (0.1-1.2); Monocytes Percent Auto 4.3 % (2-11); Neutrophils Absolute Auto 8.6 x10*3/uL (2.0-8.3); Neutrophils Percent Auto 83.6 % (45-73); Platelet Count 284 X10*3/uL (160-400); Red Blood Count 5.19 X10*6/uL (4.20-5.50); Red Cell Distribution Width 13.3 % (11.0-16.0); White Blood Count 10.3 X10*3/uL (4.8-10.8)
[2021-06-29 11:09] LABS: C Reactive Protein 0.12 mg/dL (< or = 0.50); Iron 99 mcg/dL (30-160); Percent Iron Saturation 34 % (15-50); Total Iron Binding Capacity 291 mcg/dL (228-428); Unsaturated Iron Binding 192 ug/dL
[2021-06-29 11:25] LABS: Erythrocyte Sedimentation Rate 2 MM/HR (0-20)
[2021-07-03 11:31] LABS: Complement C3 113 mg/dL (83-193)
[2021-07-04 16:36] LABS: Vitamin D 25-OH, D2 <4 ng/mL; Vitamin D 25-OH, D3 23 ng/mL; Vitamin D 25-OH, Total 23 ng/mL (30-100)
== END 2021-06-29 09:33 | disposition home or self-care (01) ==
LOC: HO.LAB 09:32
PROVIDERS: Internal Medicine; PCP Student in an Organized Health Care Education/Training Program; Visit Provider Student in an Organized Health Care Education/Training Program
DX: D64.9 Anemia, unspecified (principal); M06.9 Rheumatoid arthritis, unspecified; E55.9 Vitamin D deficiency, unspecified
CPT/HCPCS: 36415; 82306; 83540; 85025; 85652; 86140; 86160

== ENCOUNTER 2021-07-03 08:33 | Outpatient (REF) | payer OTHER, SELFPAY ==
[2021-07-03 09:46] LABS: Alanine Aminotransferase 24 U/L (0-31); Albumin Level 4.6 g/dL (3.5-5.0); Alkaline Phosphatase 78 U/L (39-117); Anion Gap 11 (12-20); Aspartate Amino Transferase 16 U/L (5-31); Bilirubin Total 0.4 mg/dL (0.0-1.0); Blood Urea Nitrogen 11 mg/dL (9-16); Calcium 9.9 mg/dL (8.4-10.2); Carbon Dioxide 25 mmol/L (22-29); Chloride 109 mmol/L (96-108); Cholesterol 151 mg/dL; Estimated Glomerular Filt Rate > 60; Glucose Fasting 108 mg/dL (60-99); HDL Cholesterol 55 mg/dL; LDL Cholesterol Calculated 76 mg/dl; Potassium 4.5 mmol/L (3.3-5.1); Sodium 140 mmol/L (135-145); Total Protein 7.3 g/dL (6.5-8.0); Triglycerides 101 mg/dL
== END 2021-07-03 08:34 | disposition home or self-care (01) ==
LOC: HO.LAB 08:33
PROVIDERS: PCP Internal Medicine; Visit Provider Internal Medicine
DX: Z00.00 Encounter for general adult medical examination without abnormal findings (principal); M06.9 Rheumatoid arthritis, unspecified
CPT/HCPCS: 36415; 80053; 80061

== ENCOUNTER → 2021-07-13 12:51 | Outpatient (BNVA) | payer OTHER, SELFPAY | PROVIDERS: PCP Internal Medicine; Visit Provider Hospitalist ==

== ENCOUNTER 2021-09-05 10:12 | Outpatient (REF) | payer OTHER, SELFPAY ==
[2021-09-05 11:47] LABS: Erythrocyte Sedimentation Rate 5 MM/HR (0-20)
[2021-09-05 12:22] LABS: Ferritin 40 ng/mL (10-250); Vitamin D 25-OH Total 23.2 ng/mL (>30)
== END 2021-09-05 10:13 | disposition home or self-care (01) ==
LOC: HO.LAB 10:12
PROVIDERS: PCP Internal Medicine; Visit Provider Hospitalist
DX: M06.9 Rheumatoid arthritis, unspecified (principal); R00.0 Tachycardia, unspecified; G47.00 Insomnia, unspecified; U07.1 COVID-19
CPT/HCPCS: 36415; 82306; 82728; 85652

== ENCOUNTER → 2021-09-06 08:22 | Outpatient (BNVA) | payer OTHER, SELFPAY | PROVIDERS: PCP Internal Medicine; Visit Provider Hospitalist ==

== ENCOUNTER 2022-01-26 08:55 | Outpatient (REF) | payer OTHER, SELFPAY ==
--- NOTE | ~2022-01-26 | CT_ITS ---
EXAMINATION: CT CHEST WITHOUT CONTRAST CLINICAL INFORMATION: Pulmonary nodule COMPARISON: Previous chest CTA is most recent January 2021 TECHNIQUE: Multidetector volumetric CT imaging of the chest was done. Axial MIP volume rendering provided. Sagittal and coronal reformatted images were obtained. This CT examination was performed using dose optimization techniques as appropriate, variously including the following: *Automated exposure control *Adjustment of mA and/or kV according to patient size (this includes techniques or standardized protocols for targeted exams where dose is matched to indication/reason for exam; i.e. extremities or head) *Use of iterative reconstruction technique DLP: 133 mGy-cm FINDINGS: FISH BAIT PICKER: Unremarkable LUNGS: There is a 2 mm left lower lobe nodule axial image 344 series 7. This is difficult to compare with prior exams due to overlying peripheral nodular infiltrates or areas of airspace disease on prior exams. The lungs are otherwise clear. The previously identified peripheral infiltrates or areas of airspace disease on prior exams have resolved. No endobronchial or endotracheal lesion. MEDIASTINUM: The mediastinum is normal. PLEURA: There is no pleural effusion. No pleural mass or thickening. AXILLA: No enlarged axillary lymph nodes. There is an asymmetric nodular density in the upper inner quadrant of the left breast measuring 1 x 1.8 cm axial image 13 series 3. There is a 7 mm nodular density in the medial upper to mid right breast axial image 17 series 3. Correlation with mammogram recommended. UPPER ABDOMEN: The gallbladder has been removed. There is a small stone in the upper pole left kidney. OSSEOUS STRUCTURES: Unremarkable. CT/CT chest wo con IMPRESSION: 2 mm left lower lobe nodule. The lungs are otherwise clear. Previously identified bilateral peripheral nodular opacities or infiltrates are no longer seen. According to the UPDATED 2017 Fleischner Society recommendations, the advised follow-up imaging for less than 6 mm nodule: Low risk, no chest CT follow-up and high risk, optional chest CT follow-up in one year. Nodular asymmetric densities in the breasts. Correlation with mammogram recommended. Left renal stones. Fleischner guidelines were followed.
== END 2022-01-26 08:56 | disposition home or self-care (01) ==
LOC: HO.CT 08:55
PROVIDERS: Visit Provider Hospitalist
DX: R91.1 Solitary pulmonary nodule (principal)
CPT/HCPCS: 71250

== ENCOUNTER 2022-10-27 07:39 | Outpatient (REF) | payer OTHER, SELFPAY ==
--- NOTE | ~2022-10-27 | MM_ITS ---
EXAMINATION: MM SCREENING DIGITAL BREAST TOMOSYNTHESIS, BILATERAL CLINICAL INFORMATION: Screening. Asymptomatic. The lifetime risk of breast cancer based on the Tyrer-Cuzick Model is 6%. COMPARISON: Mammography: 03/04/2020, 11/01/2018, 10/08/2017 TECHNIQUE: Digital breast tomosynthesis is performed in both the craniocaudal and mediolateral oblique views along with computer-aided detection (CAD). Synthesized 2D images are generated from the tomosynthesis. FINDINGS: The breasts are heterogeneously dense, which may obscure small masses (ACR BI-RADS breast composition Category c). Fibrocystic parenchymal pattern with scattered smooth round and oval masses is similar to prior studies with no significant changes. No architectural abnormality. There are no significant masses, abnormal calcifications, or other abnormalities. The axilla and skin contours are unremarkable. MM/MM tomosynthesis screening BI IMPRESSION: No significant changes from prior studies. ASSESSMENT: BI-RADS 2: Benign RECOMMENDATION: Routine annual mammography screening. This patient's information was entered into a reminder system with a target due date for their next mammogram.
== END 2022-10-27 07:40 | disposition home or self-care (01) ==
LOC: HO.MAMMO 07:39
PROVIDERS: PCP Internal Medicine; Visit Provider Internal Medicine
DX: Z12.31 Encounter for screening mammogram for malignant neoplasm of breast (principal)
CPT/HCPCS: 77063; 77067

== ENCOUNTER 2023-01-16 17:16 | Outpatient (AMB) | payer OTHER, SELFPAY ==
[2023-01-16 17:29] VITALS: BP 160/88; BMI 26.7
--- NOTE | 2023-01-16 17:29 | A.OFFPC_ITS ---
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 Accompanied by: Self / Same As Patient Allergies No Known Allergies [No Known Allergies*] Allergy (Verified 01/16/23 17:34) Medication List - Last Reconciled 01/16/23 by Barbara Monae MD No Known Home Meds Tobacco use date assessed: 01/16/23 Dental Screening Dental Screen Date: 01/16/23 Did you have a dental visit in the last 12 months?: Yes Did you have a dental problem in the last 6 months where you did not have access to dental care?: No Was dental information given to patient?: Patient has dentist HPI HPI Comments History of Present Illness Details This is a 47-year-old female with rheumatoid arthritis that comes for her physical exam. She declines treatment for rheumatoid arthritis and is aware that if she does not treat she will have deformity H and complications. She will call for Pap smear. Mammogram done 2022. Will have Cologuard instead of colonoscopy. 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 Social History Housing: House Alcohol intake: never Patient Tobacco Use Status: Never used Tobacco e-Cigarette/Vaping Use: Never Used Second Hand Smoke Exposure: No service: No Current occupational status: employed Current occupational exposures/hazards: No Cognitive needs: No Hearing needs: No Vision needs: No Questionnaire PHQ-9 Over the last 2 weeks, how often have you been bothered by any of the following problems? 1. Little interest or pleasure in doing things: not at all 2. Feeling down, depressed, or hopeless: not at all 3. Trouble falling or staying asleep, or sleeping too much: not at all 4. Feeling tired or having little energy: not at all 5. Poor appetite or overeating: not at all 6. Feeling bad about yourself - or that you are a failure or have let yourself or your family down: not at all 7. Trouble concentrating on things, such as reading the newspaper or watching television: not at all 8. Moving or speaking so slowly that other people could have noticed. Or the opposite - being so fidgety or restless that you have been moving around a lot more than usual: not at all 9. Thoughts that you would be better off or of hurting yourself in some way: not at all Total score: 0 Depression Screening Interpretation: Negative 78181 - PHQ-9 Billing: Yes Source: Developed by Drs. Gee Barron, Lizbeth Yao, Isacc Lerner and colleagues, with an educational perez from [employer]. Thrive Questionnaire Date Thrive assessed: 07/27/21 MALA-7 AMB Questionnaire MALA-7 Date MALA - 7 assessed: 01/16/23 Feeling nervous, anxious, or on edge: 1 = Several days Not being able to stop or control worryin = Not at all Worrying too much about different things: 1 = Several days Trouble relaxin = Not at all Being so restless that it is hard to sit still: 0 = Not at all Becoming easily annoyed or irritable: 0 = Not at all Feeling afraid as if something awful might happen: 0 = Not at all Total MALA-7 score (0-4 normal; 5-9 mild; 10-14 moderate; 15-21 severe): 2 Source: Developed by Drs. Gee Barron, Lizbeth Yao, Isacc Lerner and colleagues, with an educational perez from [employer]. MALA-7 Assessment Billing MALA-7 Assessment Tool: MALA-7 Assessment 50406 Review of Systems Const All systems reviewed & are unremarkable except as noted in HPI and below Eyes Reports no additional complaints, Denies change in vision and Denies other visual disturbances Card Denies chest pain at rest, Denies chest pain with activity, Denies edema, Denies irregular heart rhythm, Denies claudication, Denies dyspnea, Denies dyspnea on exertion, Denies orthopnea, Denies paroxysmal nocturnal dyspnea and Denies slow heart rate Resp Denies cough, Denies dyspnea and Denies dyspnea on exertion GI Denies abdominal pain, Denies change in bowel habits, Denies excessive flatus, Denies nausea and Denies vomiting Denies urinary incontinence, Denies urinary hesitancy and Denies urinary urgency Musc Denies abnormal gait, Denies atrophy, Denies deformity and Denies limited range of motion Skin/Breast Denies bleeding lesions, Denies changing lesions and Denies rash Neuro Denies abnormal gait and Denies lack of coordination Physical exam (Primary Care) Vital Signs: Last Vital Signs BP 160/88 H 01/16/23 17:29 BMI result Body Mass Index 26.7 Tobacco/Smoking Status: Tobacco use Status Tobacco use date assessed 01/16/23 01/16/23 17:35 Patient Tobacco Use Status Never used Tobacco 01/16/23 17:35 e-Cigarette/Vaping Use Never Used 01/16/23 17:35 PHQ-9: PHQ-9 Score PHQ-9: Total score 0 01/16/23 17:50 Depression Screening Interpretation: Negative Thrive Assessment: Date of Thrive Assessment Date Thrive assessed 07/27/21 01/16/23 17:35 Const Orientation/consciousness: patient oriented x3 HENMT Head: Yes normal to inspection, Yes normocephalic and Yes atraumatic Ears: external ears normal Eyes General: appearance normal, both eyes and all related structures Eyelids: Yes eyelids normal Conjunctivae: conjunctivae normal Neck Neck: Yes normal visual inspection and Yes supple Resp Effort & Inspection: normal respiratory effort Auscultation: clear to auscultation bilaterally Cardio Jugular venous distension: no JVD Rate: regular rate Rhythm: regular rhythm Heart sounds: S1 normal heart sound present and S2 normal heart sound present GI Inspection: Yes normal to inspection Palpation (GI): Soft to palpation and nontender Auscultation: normal bowel sounds Skin General skin exam: no rashes or lesions noted Neuro General: patient oriented x3 and no focal motor deficits Extrem General: Yes full ROM Psych Appearance: grossly normal Assessment and Plan Assessment & Plan (1) Physical exam: Code(s): Z00.00 - Encounter for general adult medical examination without abnormal findings Plan: Repeat in a year (2) Rheumatoid arthritis: Code(s): M06.9 - Rheumatoid arthritis, unspecified Qualifiers: Rheumatoid arthritis location: unspecified site Rheumatoid factor presence: unspecified presence Qualified Code(s): M06.9 - Rheumatoid arthritis, unspecified Plan: Patient declines treatment. Labs ordered. Orders: Orders Comprehensive [place]. Panel Fast Today R00.0 - Tachycardia, unspecified Lipid Panel Today Z00.00 - Encounter for general adult medical examination without abnormal findings Cyclic Citrullinated Peptide Today M06.9 - Rheumatoid arthritis, unspecified CRP High Sensitivity Today M06.9 - Rheumatoid arthritis, unspecified Complete Blood Count Auto Diff Today M06.9 - Rheumatoid arthritis, unspecified Erythrocyte Sedimentation Rate Today M06.9 - Rheumatoid arthritis, unspecified Referrals Cologuard Test Z12.11 - Encounter for screening for malignant neoplasm of colon, Z12.12 - Encounter for screening for malignant neoplasm of rectum Coding Level of Care Code Est Pt Prev Care 40-64y(44411) Diagnoses Physical exam Z00.00 Rheumatoid arthritis M06.9 Rheumatoid arthritis location: unspecified site Rheumatoid factor presence: unspecified presence Additional Codes MALA-7 Assessment Billing - MALA-7 Assessment Tool: MALA-7 Assessment 33384 ([id number]) Time Spent (min) 31
== END 2023-01-16 17:51 | disposition home or self-care (01) ==
PROVIDERS: PCP Internal Medicine; Visit Provider Internal Medicine
DX: Z00.00 Encounter for general adult medical examination without abnormal findings (principal); M06.9 Rheumatoid arthritis, unspecified
CPT/HCPCS: 99396

== ENCOUNTER 2023-05-01 15:56 | Outpatient (AMB) | payer OTHER, MEDICAID, SELFPAY ==
[2023-05-01 15:56] VITALS: BMI 25.4
--- NOTE | 2023-05-01 15:56 | A.OFFPC_ITS ---
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 Accompanied by: Self / Same As Patient Allergies No Known Allergies [No Known Allergies*] Allergy (Verified 05/01/23 16:23) Medication List - Last Reconciled 05/01/23 by Barbara Monae MD No Known Home Meds Tobacco use date assessed: 01/16/23 Dental Screening Dental Screen Date: 05/01/23 Did you have a dental visit in the last 12 months?: No Did you have a dental problem in the last 6 months where you did not have access to dental care?: No Was dental information given to patient?: Patient has dentist HPI HPI Comments History of Present Illness Details This is a 48-year-old female with anxiety and insomnia that has telehealth visit by phone complaining of having more anxiety and insomnia after being recently from her about a month ago. She had a citalopram in the past that works really good for her. I will restart her on the medication. No chest pain or shortness of breath. [facility] Medical History (Updated 01/16/23 @ 17:40 by Barbara Monae MD) Pulmonary nodule MALA (generalized anxiety disorder) Physical exam Bronchitis with bronchospasm Insomnia [id number] syndrome Pneumonia Tachycardia Respiratory distress Rash Abnormal chest x-ray Prolonged [place] interval COVID-19 (~12/2020) Rheumatoid arthritis Thrombosed external hemorrhoid Surgical History History of laparoscopic cholecystectomy (2013) History of hemorrhoidectomy (2013) Family History Father History of liver cancer Substance use disorder Maternal Aunt History of leukemia Mother No problems noted. Social History Housing: House Alcohol intake: never Patient Tobacco Use Status: Never used Tobacco e-Cigarette/Vaping Use: Never Used Second Hand Smoke Exposure: No service: No Current occupational status: employed Current occupational exposures/hazards: No Cognitive needs: No Hearing needs: No Vision needs: No Questionnaire PHQ-9 Over the last 2 weeks, how often have you been bothered by any of the following problems? 1. Little interest or pleasure in doing things: not at all 2. Feeling down, depressed, or hopeless: not at all 3. Trouble falling or staying asleep, or sleeping too much: not at all 4. Feeling tired or having little energy: not at all 5. Poor appetite or overeating: not at all 6. Feeling bad about yourself - or that you are a failure or have let yourself or your family down: not at all 7. Trouble concentrating on things, such as reading the newspaper or watching television: not at all 8. Moving or speaking so slowly that other people could have noticed. Or the opposite - being so fidgety or restless that you have been moving around a lot more than usual: not at all 9. Thoughts that you would be better off or of hurting yourself in some way: not at all Total score: 0 Depression Screening Interpretation: Negative Depression Screening Done: Yes 37262 - PHQ-9 Billing: Yes Source: Developed by Drs. Gee Barron, Lizbeth Yao, Isacc Lerner and colleagues, with an educational perez from [employer]. Thrive Questionnaire Date Thrive assessed: 05/01/23 I am a: Patient What is your living situation today?: I have a steady place to live Within the past 12 months, did the food you bought not last and you didn't have the money to get more?: Never true Within the past 12 months, did you worry whether your food would run out before you got money to buy more?: Never true Do you have trouble paying for medicines?: No Do you have trouble getting transportation to medical appointments?: No Do you have trouble paying your heating and electricity bill?: No Do you have trouble taking care of your child, family member or friend?: No Do you have trouble with day-to-day activities such as bathing, preparing meals, shopping, managing finances, etc.?: No Are you currently unemployed and looking for a job?: No Are you interested in more education?: No Please select the resources that you would like help with: None Currently or been in a relationship where the following occur: no concerns reported AUDIT C Alcohol Use Questionnaire (AUDIT-C) 1. How often do you have a drink containing alcohol?: Never Total Score: 0 Score Reviewed/Action Taken: No MALA-7 AMB Questionnaire MALA-7 Date MALA - 7 assessed: 05/01/23 Feeling nervous, anxious, or on edge: 1 = Several days Not being able to stop or control worryin = Not at all Worrying too much about different things: 1 = Several days Trouble relaxin = Not at all Being so restless that it is hard to sit still: 0 = Not at all Becoming easily annoyed or irritable: 0 = Not at all Feeling afraid as if something awful might happen: 0 = Not at all Total MALA-7 score (0-4 normal; 5-9 mild; 10-14 moderate; 15-21 severe): 2 Source: Developed by Drs. Gee Barron, Lizbeth Yao, Isacc Lerner and colleagues, with an educational perez from [employer]. MALA-7 Assessment Billing MALA-7 Assessment Tool: MALA-7 Assessment 67073 Review of Systems Const All systems reviewed & are unremarkable except as noted in HPI and below Eyes Reports no additional complaints, Denies change in vision and Denies other visual disturbances Card Denies chest pain at rest, Denies chest pain with activity, Denies edema, Denies irregular heart rhythm, Denies claudication, Denies dyspnea, Denies dyspnea on exertion, Denies orthopnea, Denies paroxysmal nocturnal dyspnea and Denies slow heart rate Resp Denies cough, Denies dyspnea and Denies dyspnea on exertion GI Denies abdominal pain, Denies change in bowel habits, Denies excessive flatus, Denies nausea and Denies vomiting Denies urinary incontinence, Denies urinary hesitancy and Denies urinary urgency Musc Denies abnormal gait, Denies atrophy, Denies deformity and Denies limited range of motion Skin/Breast Denies bleeding lesions, Denies changing lesions and Denies rash Neuro Denies abnormal gait, Denies behavioral changes, Denies confusion and Denies lack of coordination Psych Reports abnormal sleep pattern, Reports anxiety, Denies behavioral changes and Denies confusion Physical exam (Primary Care) BMI result Body Mass Index 25.4 Tobacco/Smoking Status: Tobacco use Status Tobacco use date assessed 01/16/23 05/01/23 15:59 Patient Tobacco Use Status Never used Tobacco 05/01/23 15:59 e-Cigarette/Vaping Use Never Used 05/01/23 15:59 PHQ-9: PHQ-9 Score PHQ-9: Total score 0 05/01/23 16:29 Depression Screening Interpretation: Negative Thrive Assessment: Date of Thrive Assessment Date Thrive assessed 05/01/23 05/01/23 15:59 Currently or been in a relationship where the following occur: no concerns reported Const General: No confusion Orientation/consciousness: No confusion Neuro General: No confusion Telehealth Telehealth Location of provider rendering services: practice address Location of patient: address on file Patient Identification confirmed using: Name, : Yes Telehealth method: voice only Patient verbally consented to treatment: Yes Patient verbally consented to billing insurance company: Yes Patient informed of any privacy concerns related to visit: Yes Minutes spent on Phone/Video with Pt.: 15 Assessment and Plan Assessment & Plan (1) MALA (generalized anxiety disorder): Code(s): F41.1 - Generalized anxiety disorder Plan: Restart escitalopram at bedtime. (2) Insomnia: Code(s): G47.00 - Insomnia, unspecified Plan: Restart escitalopram at bedtime. Medications: New escitalopram oxalate 5 mg PO DAILY 90 tabs 1RF 90 days Coding Level of Care Code Tele Est Pt Level 3 (54372) Diagnoses MALA (generalized anxiety disorder) F41.1 Insomnia G47.00 Additional Codes MALA-7 Assessment Billing - MALA-7 Assessment Tool: MALA-7 Assessment 86581 ([id number]) Time Spent (min) 15
== END 2023-05-01 16:52 | disposition home or self-care (01) ==
LOC: HO.HMGH 15:56
PROVIDERS: PCP Internal Medicine; Visit Provider Internal Medicine
DX: F41.1 Generalized anxiety disorder (principal); G47.00 Insomnia, unspecified
CPT/HCPCS: 99213

== ENCOUNTER 2023-11-02 07:26 | Outpatient (REF) | payer OTHER, SELFPAY | END 2023-11-02 07:27 | disposition home or self-care (01) | LOC: HO.MAMMO 07:26 | PROVIDERS: PCP Internal Medicine; Visit Provider Internal Medicine | DX: Z12.31 Encounter for screening mammogram for malignant neoplasm of breast (principal) | CPT/HCPCS: 77063; 77067 ==

== ENCOUNTER → 2023-11-02 07:45 | Outpatient (BNV) | payer OTHER, SELFPAY | PROVIDERS: PCP Internal Medicine; Visit Provider Radiology Diagnostic Radiology | DX: Z12.31 Encounter for screening mammogram for malignant neoplasm of breast (principal) | CPT/HCPCS: 77063; 77067 ==

== ENCOUNTER 2024-07-04 23:57 | Emergency (ER) | payer OTHER, SELFPAY ==
--- NOTE | ~2024-07-04 | CT_ITS ---
CLINICAL HISTORY: flank pain r o kidney stones CT abdomen and pelvis without contrast Comparison: None Findings: No consolidation or effusion. Multiple small nonobstructing left renal calculi. Mild left hydronephrosis. Left ureter is decompressed. There is a 4 mm stone at the left ureterovesical junction. Gallbladder is absent. Liver, right kidney, spleen, adrenal glands and pancreas are unremarkable. No bowel obstruction, pneumoperitoneum, or pneumatosis. Uterus and adnexa are unremarkable. Normal appendix. No acute fracture. IMPRESSION: 4 mm stone in the left ureterovesical junction resulting in mild left hydronephrosis. This document has been electronically signed by: Andrés Jim MD on 07/05/2024 02:46:27
[2024-07-05] VITALS: BP 147/64; PULSE 153; RESP 18; TEMP 36.8; O2SAT 97; BMI 26.2
--- NOTE | 2024-07-05 | ECG_ITS ---
Test Reason : TACHY Blood Pressure : / mmHG Vent. Rate : 143 BPM Atrial Rate : 143 BPM P-R Int : 132 ms QRS Dur : 078 ms QT Int : 274 ms P-R-T Axes : 070 024 007 degrees QTc Int : 422 ms Sinus tachycardia Nonspecific T wave abnormality Abnormal ECG When compared with ECG of 22-FEB-2021 05:49, No significant change was found Referred By: Generic ED Physician Electronically Signed By:GINO MCGUIRE MD
[2024-07-05 00:22] LABS: Basophils Percent Auto 0.4 % (0-2); Eosinophils Absolute Auto 0.1 X10*3/uL (0.0-0.4); Eosinophils Percent Auto 1.7 % (0-4); Hematocrit 35.8 % (37.0-47.0); Imm Gran Abs Auto 0.02 X10*3/uL (0.00-0.03); Imm Gran Pct Auto 0.2 % (0.0-0.4); Lymphocytes Absolute Auto 2.6 X10*3/uL (1.2-4.9); Lymphocytes Percent Auto 32.2 % (20-40); MANUAL DIFF FLAG NO; Mean Corpuscular HGB Conc 33.5 g/dl (31.0-35.0); Mean Corpuscular Hemoglobin 25.4 pg (27.0-33.0); Mean Corpuscular Volume 75.8 fL (80.0-98.0); Mean Platelet Volume 9.7 fL (9.4-12.3); Monocytes Absolute Auto 0.6 X10*3/uL (0.1-1.2); Monocytes Percent Auto 6.9 % (2-11); Neutrophils Absolute Auto 4.7 x10*3/uL (2.0-8.3); Neutrophils Percent Auto 58.6 % (45-73); Platelet Count 255 X10*3/uL (160-400); Red Blood Count 4.72 X10*6/uL (4.20-5.50); Red Cell Distribution Width 12.9 % (11.0-16.0)
[2024-07-05 00:41] LABS: Alanine Aminotransferase 18 U/L (0-31); Albumin Level 4.4 g/dL (3.5-5.0); Alkaline Phosphatase 83 U/L (39-117); Anion Gap 12 (12-20); Aspartate Amino Transferase 18 U/L (5-31); Bilirubin Total 0.2 mg/dL (0.0-1.0); Blood Urea Nitrogen 15 mg/dL (9-16); Calcium 9.4 mg/dL (8.4-10.2); Carbon Dioxide 22 mmol/L (22-29); Chloride 110 mmol/L (96-108); Creatinine Clr Calc Pharmacy 96.6; Estimated Glomerular Filt Rate > 60; Glucose Random 146 mg/dL (60-115); Lipase 16 U/L (8-78); Potassium 3.2 mmol/L (3.3-5.1); Sodium 141 mmol/L (135-145); Total Protein 7.5 g/dL (6.5-8.0)
[2024-07-05 00:49] LABS: Troponin-I High Sensitivity < 2.7 ng/L (<3.5-17.0)
[2024-07-05 01:34] VITALS: BP 139/67; PULSE 144; RESP 18; TEMP 37; O2SAT 96
--- NOTE | 2024-07-05 02:05 | MHC.EDTECH ---
Patient bladder scan was 206 post void ,patient void 100 ml in toilet .Urine sample collected and sent to lab .
[2024-07-05 02:18] LABS: Appearance Urine Clear; Glucose Urine UA Negative (Negative); Leukocyte Esterase Urine Trace (Negative); Nitrite Urine Negative (Negative); PH 6.5 (5.0-9.0); Specific Gravity - Urine <= 1.005 (1.005-1.025); UMIC TRIGGER UACC YES; Urine Blood Moderate (2+) (Negative); Urine Ketones Negative (Negative); Urine Protein Negative (Neg-Trace)
[2024-07-05 02:19] LABS: Color Urine Straw
[2024-07-05 02:28] LABS: Bacteria Urine None Seen (None Seen); Hyaline Casts Urine 0-2 /LPF (0-2); RBC Urine 0-2 /HPF (0-2); WBC Urine 0-5 /HPF (0-5)
[2024-07-05 04:00] VITALS: BP 141/69; PULSE 149; RESP 16; TEMP 37.3; O2SAT 98
--- NOTE | 2024-07-05 04:04 | MHC.EDTECH ---
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
--- NOTE | 2024-07-05 05:29 | ED_ITS ---
HPI - Abdominal Pain General Chief Complaint: Abdominal Pain Stated Complaint: left side pain Time Seen by Provider: 07/05/24 05:18 Source: patient Mode of arrival: ambulatory Limitations: no limitations History of Present Illness ED Provider: Dr. Hailee Ellison HPI narrative: Patient comes to the emergency room complaining of left-sided flank pain and left lower quadrant pain. Patient complaining of frequency and urgency, patient had 1 episode of vomiting. Denies diarrhea. Patient states that the pain is intermittent. Patient denies previous history of kidney stones. Patient denies hematuria or dysuria Related Data Previous Rx's ?Medication ?Instructions ?Recorded escitalopram oxalate 5 mg tablet 5 mg PO DAILY 90 days #90 tabs 05/01/23 ketorolac 10 mg tablet 10 mg PO Q8H #12 tabs 07/05/24 prednisone 20 mg tablet 20 mg PO DAILY #2 tabs 07/05/24 tamsulosin 0.4 mg capsule (Flomax) 0.4 mg PO DAILY #10 caps 07/05/24 Allergies Allergy/AdvReac Type Severity Reaction Status Date / Time No Known Allergies Allergy Verified 07/05/24 00:02 [No Known Allergies*] Review of Systems Review of Systems Constitutional : No Weight loss, No Fever, No Chills, No Night Sweats, No Fatigue, No Malaise ENT/Mouth : No Hearing loss, No Ear Pain, No Nasal Congestion, No Sinus Pain, No Hoarseness, No sore throat, No Rhinorrhea, No Swallowing Difficulty Eyes: No Eye Pain, No Swelling, No Redness, No Foreign Body, No Discharge, No Vision Changes Cardiovascular : No Chest Pain, No SOB, No Dyspnea on Exertion, No Orthopnea, No Edema, No Palpitations Respiratory : No Cough, No Sputum, No Wheezing, No Smoke Exposure, No Dyspnea Gastrointestinal : Complaining of 1 episode of vomiting No Diarrhea, No Constipation, complaining of left lower quadrant Genitourinary : no irregular bleeding, No Dysuria, No Urinary Frequency, No Hematuria, No Urinary Incontinence, No Urgency, complaining of left-sided Flank Pain, No Urinary Flow Changes, No Hesitancy Musculoskeletal : No joint pain, No Myalgias, No Joint Swelling Skin : No Skin Lesions, No rash Neuro : No Weakness, No Numbness, No Paresthesias, No Loss of Consciousness, No Dizziness, No Headache Psych : No Anxiety/Panic, No Depression, No SI/HI/AH/VH, No Social Issues, Heme/Lymph: No Bruising, No Bleeding,No Lymphadenopathy Endocrine : No Polyuria, No Polydipsia, No Temperature Intolerance [facility] Past Medical History Medical History Pulmonary nodule MALA (generalized anxiety disorder) Physical exam Bronchitis with bronchospasm Insomnia 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 Social History Social History Housing: House Alcohol intake: current Alcohol intake frequency: a few times a month Patient Tobacco Use Status: Never used Tobacco Smoked in Last 30 Days: No e-Cigarette/Vaping Use: Never Used Second Hand Smoke Exposure: No Use of substances other than those prescribed or required for medical reasons: No Advance Directives: No Do you have a plan to hurt others: No Plan Patient : No service: No Current occupational status: employed Current occupational exposures/hazards: No Cognitive needs: No Hearing needs: No Vision needs: No Physical Exam ED Vital Signs: Vital Signs - 24 hr 07/05/24 00:00 07/05/24 01:34 07/05/24 04:00 Temperature 98.3 F 98.6 F 99.1 F Pulse Rate 153 H 144 H 149 H Respiratory Rate 18 18 16 Blood Pressure 147/64 H 139/67 141/69 H Pulse Oximetry 97 96 98 Oxygen Delivery Method Room Air Room Air Room Air BMI result Body Mass Index 26.2 Const Other: Appearance: Alert. Oriented X3. No acute distress. Eyes: Pupils equal, round and reactive to light. ENT: Pharynx normal. Neck: Normal inspection. Neck supple. No lymph nodes noted. No crepitus CVS: Normal heart rate and rhythm. Pulses normal. Normal S1 and S2 Respiratory: No respiratory distress. Breath sounds normal. No Wheezing. No rales Abdomen: Soft and nontender. No rigidity. No distention. No significant CVA tenderness at this time. Skin: Skin warm and dry. Normal skin color. Normal skin turgor. Extremities: No lower extremity edema. No Lacerations. No Rash Neuro: Oriented X 3. No motor deficit. No sensory deficit. Moving all extremities. No slurred speech. CN 2 through 12 grossly intact Psych: calm, cooperative, normal affect Medical Decision Making Medical Decision Making [facility] Narrative: My interpretation of labs: Patient's white blood cell count 8.0. Patient's potassium 3.2 which was repleted p.o.. BUN and creatinine within normal limits. Lipase within normal limits. Urine positive for blood and leukocyte esterase. Patient has no urinary symptoms, antibiotics not indicated. -CT scan of the abdomen/pelvis: 4 mm stone in the left ureterovesicular junction resulting in mild left hydronephrosis. Patient has multiple small nonobstructing left renal calculi Differential Diagnosis Differential Diagnoses: The differential diagnosis associated with the presentation includes (Ureterolithiasis, pyelonephritis, UTI, musculoskeletal pain) Lab Data [facility] Lab Attestation statement: I reviewed the patient's lab results. 07/05/24 00:18 07/05/24 00:18 Labs: Lab Results 07/05/24 07/05/24 Range/Units 00:18 02:09 WBC 8.0 (4.8-10.8) X10*3/uL RBC 4.72 (4.20-5.50) X10*6/uL Hgb 12.0 (12.0-16.0) g/dl Hct 35.8 L (37.0-47.0) % MCV 75.8 L (80.0-98.0) fL MCH 25.4 L (27.0-33.0) pg MCHC 33.5 (31.0-35.0) g/dl RDW 12.9 (11.0-16.0) % Plt Count 255 (160-400) X10*3/uL MPV 9.7 (9.4-12.3) fL Immature Gran % (Auto) 0.2 (0.0-0.4) % Neut % (Auto) 58.6 (45-73) % Lymph % (Auto) 32.2 (20-40) % [place] % (Auto) 6.9 (2-11) % Eos % (Auto) 1.7 (0-4) % Baso % (Auto) 0.4 (0-2) % Lymph # (Auto) 2.6 (1.2-4.9) X10*3/uL [place] # (Auto) 0.6 (0.1-1.2) X10*3/uL Eos # (Auto) 0.1 (0.0-0.4) X10*3/uL Baso # (Auto) 0.0 (0.0-0.2) X10*3/uL Abs Immat Gran (auto) 0.02 (0.00-0.03) X10*3/uL Absolute Neuts (auto) 4.7 (2.0-8.3) x10*3/uL Absolute Nucleated RBC 0.000 (0.0-0.012) X10*3/uL Nucleated RBC % (auto) 0.0 (0.0-0.2) /100WBC Sodium 141 (135-145) mmol/L Potassium 3.2 L (3.3-5.1) mmol/L Chloride 110 H (96-108) mmol/L Carbon Dioxide 22 (22-29) mmol/L Anion Gap 12 (12-20) BUN 15 (9-16) mg/dL Creatinine 0.64 (0.5-1.4) mg/dL Estim Creat Clear Calc 96.6 Estimated GFR > 60 Random Glucose 146 H (60-115) mg/dL Calcium 9.4 (8.4-10.2) mg/dL Total Bilirubin 0.2 (0.0-1.0) mg/dL AST 18 (5-31) U/L ALT 18 (0-31) U/L Alkaline Phosphatase 83 (39-117) U/L Troponin I High Sens < 2.7 (<3.5-17.0) ng/L Total Protein 7.5 (6.5-8.0) g/dL Albumin 4.4 (3.5-5.0) g/dL Lipase 16 (8-78) U/L Urine Color Straw Urine Appearance Clear Urine pH 6.5 (5.0-9.0) Ur Specific [place] <= 1.005 (1.005-1.025) Urine Protein Negative (Neg-Trace) mg/dL Urine Glucose (UA) Negative (Negative) mg/dL Urine Ketones Negative (Negative) mg/dL Urine Blood Moderate (2+) H (Negative) Urine Nitrite Negative (Negative) Ur Leukocyte Esterase Trace H (Negative) Urine RBC 0-2 (0-2) /HPF Urine WBC 0-5 (0-5) /HPF Ur Squamous Epith Cells 3-5 (0-2) /HPF Urine Bacteria None Seen (None Seen) Hyaline Casts 0-2 (0-2) /LPF Independent Interpretation I performed an independent interpretation of an: CT Scan Radiology Impression Discussion of test interpretation with radiology: I have reviewed the radiologist's reading. Radiologist Impression: No consolidation or effusion. Multiple small nonobstructing left renal calculi. Mild left hydronephrosis. Left ureter is decompressed. There is a 4 mm stone at the left ureterovesical junction. Gallbladder is absent. Liver, right kidney, spleen, adrenal glands and pancreas are unremarkable. No bowel obstruction, pneumoperitoneum, or pneumatosis. Uterus and adnexa are unremarkable. Normal appendix. No acute fracture. IMPRESSION: 4 mm stone in the left ureterovesical junction resulting in mild left hydronephrosis. Discharge Plan Discharge Clinical Impression: Ureterolithiasis, Acute hypokalemia Patient Disposition: Home, Self-Care Instructions: Potassium Content of Foods List (ED), Hypokalemia (ED), Ureteral Stones (ED) Additional Instructions: Please follow-up with your primary care physician tomorrow. If you have any worsening or new symptoms, please return to the emergency room or call 911 Prescriptions: New ketorolac 10 mg tablet 10 mg PO Q8H Qty: 12 0RF Rx Instructions: Do not use this medication with other NSAIDs, Tylenol is okay tamsulosin [Flomax] 0.4 mg capsule 0.4 mg PO DAILY Qty: 10 0RF prednisone 20 mg tablet 20 mg PO DAILY Qty: 2 0RF No Action escitalopram oxalate 5 mg tablet 5 mg PO DAILY 90 Days Qty: 90 1RF Referrals: Omar Wynne MD [Physician] - 07/06/24 Stand Alone Forms: Work/School Release Print Language: Romansh
[2024-07-05] MEDS: Potassium Chloride Packet 20 MEQ PACKET 40 MEQ PO (05:41)
[2024-07-05] MEDS: Tamsulosin HCL 0.4 MG CAPSULE PO (05:41)
[2024-07-05 05:42] VITALS: BP 129/64; PULSE 110; RESP 16; TEMP 37.2; O2SAT 97
[2024-07-05] MEDS: predniSONE 20 MG TABLET PO (05:42)
[2024-07-05] MEDS: Ketorolac Tromethamine 60 MG/2 ML VIAL IM (05:42)
[2024-07-05 05:56] VITALS: BP 129/64; PULSE 110; RESP 16; TEMP 37.2; O2SAT 97
== END 2024-07-05 05:57 | disposition home or self-care (01) ==
PROVIDERS: Emergency Provider Emergency Medicine; PCP Internal Medicine
DX: N20.1 Calculus of ureter (principal); E87.6 Hypokalemia; R00.0 Tachycardia, unspecified; R10.2 Pelvic and perineal pain; R10.32 Left lower quadrant pain; R35.0 Frequency of micturition; R39.15 Urgency of urination; R11.10 Vomiting, unspecified; Z79.899 Other long term (current) drug therapy
CPT/HCPCS: 36415; 74176; 80053; 81001; 83690; 84484; 85025; 93005; 96372; 99284; 99285; J1885

== ENCOUNTER → 2024-07-05 00:12 | Outpatient (BNV) | payer OTHER, SELFPAY | PROVIDERS: Emergency Provider Emergency Medicine; PCP Internal Medicine; Visit Provider Internal Medicine Cardiovascular Disease | DX: R94.31 Abnormal electrocardiogram [ECG] [EKG] (principal) | CPT/HCPCS: 93010 ==

== ENCOUNTER → 2024-07-05 01:41 | Outpatient (BNV) | payer OTHER, SELFPAY | PROVIDERS: PCP Internal Medicine; Visit Provider Radiology Diagnostic Radiology | DX: N20.1 Calculus of ureter (principal) | CPT/HCPCS: 74176 ==